=== PATIENT | female | born 1940 | race Caucasian/White ===

== ENCOUNTER 2020-09-11 15:30 | IRF | payer OTHER, SELFPAY ==
--- NOTE | ~2020-09-11 | XR_ITS ---
EXAMINATION: XR chest 2V DATE: 09/18/2020 10:19 INDICATION: Shortness of breath TECHNIQUE: AP and lateral views of the chest are obtained. COMPARISON: None available FINDINGS: There are minimal airspace opacities of the lower lobes. There is no pleural effusion or pn eumothorax. The cardiomediastinal silhouette is normal. There is moderate thoracic spondylosis. IMPRESSION: 1. Minimal airspace opacities of the lung bases, likely atelectasis. Reviewed, dictated and finalized at location A. CH MANAGER TRAINEE
[2020-09-11 15:30] VITALS: BP 128/65; PULSE 104; RESP 20; TEMP 35.9; O2SAT 97; BMI 29.0
--- NOTE | 2020-09-11 15:55 | ADMGEN ---
This patient, Carissa Ramos, was admitted to [facility] Room 223-01. Patient/family oriented to hospital policies and general routines including ID bracelet, bed and alarms, visiting hours, pain management, procedures, bathroom and other care routines, personal items, smoking policy, room service/diet, and visiting hours. Information on how to activate the Rapid Response Team has been discussed. Patient/Family are encouraged to report perceived risks to care and to ask questions if they do not understand what they are told or what they should do.
[2020-09-11] MEDS: CITALOPRAM HYDROBROMIDE 20 MG TABLET PO (17:20)
[2020-09-11] MEDS: ASPIRIN 325 MG ENTERIC TABLET PO (17:20)
[2020-09-11] MEDS: ACETAMINOPHEN 500 MG TABLET 1000 MG PO (17:20)
[2020-09-11] MEDS: SENNA/DOCUSATE SODIUM TABLET 2 TAB PO (20:18)
[2020-09-11 20:44] VITALS: BP 138/78; PULSE 99; RESP 18; TEMP 36.6; O2SAT 94
[2020-09-12] VITALS (7 sets, daily range): BP systolic 126–170; BP diastolic 66–90; PULSE 77–99; RESP 18–20; TEMP 36.4–36.7; O2SAT 94–96
[2020-09-12 05:52] LABS: Basophils Percent Auto 0.5 % (0.2-1.2); Eosinophils Absolute Auto 0.3 K/mm3 (0-0.3); Eosinophils Percent Auto 4.5 % (0-4.4); Hematocrit 29.6 % (37.0-47.0); Hemoglobin 9.8 g/dL (12.0-15.0); Immature Granulocyte Absolute 0.02 K/mm3 (0.00-0.031); Immature Granulocyte Percent A 0.3 % (0-0.5); Lymphocytes Absolute Auto 1.59 K/mm3 (0.9-3.2); Lymphocytes Percent Auto 24.8 % (18.3-44.2); Mean Corpuscular HGB Conc 33.1 g/dl (32-36); Mean Corpuscular Hemoglobin 31.8 pg (26-34); Mean Corpuscular Volume 96.1 fl (80-100); Monocytes Absolute Auto 0.8 K/mm3 (0.1-0.6); Neutrophils Absolute Auto 3.7 K/mm3 (1.3-6.7); Neutrophils Percent Auto 57.9 % (45.5-73.1); Platelet Count Result 334 k/mm3 (150-375); Red Blood Count 3.08 M/mm3 (4.2-5.4); Red Cell Distribution Width 14.7 % (11.5-14.5); White Blood Count 6.4 K/mm3 (4.5-10.0)
[2020-09-12] MEDS: LEVOTHYROXINE SODIUM 25 MCG TABLET PO (06:01)
[2020-09-12 06:06] LABS: Anion Gap 1 mmol/L (8-16); Blood Urea Nitrogen 39 mg/dL (7-17); Calcium 9.5 mg/dL (8.4-10.2); Carbon Dioxide 32 mmol/L (22-30); Chloride 106 mmol/L (98-107); Estimated CRCL calculation 35 ml/min; Estimated Glomerular Filt Rate 43; Glucose 113 mg/dL (65-105); Potassium 4.3 mmol/L (3.4-5.0); Sodium 139 mmol/L (137-145)
[2020-09-12] MEDS: ACETAMINOPHEN 500 MG TABLET 1000 MG PO ×4 (06:39→17:17)
[2020-09-12] MEDS: lisinopriL 20 MG TABLET PO (07:58)
[2020-09-12] MEDS: METOPROLOL SUCCINATE EXT REL 25 MG TABCR PO (07:58)
[2020-09-12] MEDS: SENNA/DOCUSATE SODIUM TABLET 2 TAB PO ×2 (07:58→20:36)
[2020-09-12] MEDS: hydroCHLOROthiazide 12.5 MG CAPSULE PO (07:58)
[2020-09-12] MEDS: PANTOPRAZOLE 40 MG TABLET PO (07:59)
[2020-09-12] MEDS: polyethylene glycoL 3350 17 GM POWD.PACK PO (07:59)
[2020-09-12] MEDS: ASPIRIN 325 MG ENTERIC TABLET PO ×2 (07:59→17:17)
[2020-09-12] MEDS: LIDOCAINE 5% PATCH 2 PATCH TOPICAL (08:00)
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
[2020-09-12] MEDS: CITALOPRAM HYDROBROMIDE 20 MG TABLET PO (17:17)
[2020-09-13] MEDS: ACETAMINOPHEN 500 MG TABLET 1000 MG PO ×4 (00:09→17:14)
[2020-09-13 05:53] VITALS: BP 127/65; PULSE 82; RESP 18; TEMP 36.9; O2SAT 95
[2020-09-13] MEDS: LEVOTHYROXINE SODIUM 25 MCG TABLET PO (06:23)
[2020-09-13 08:00] VITALS: PULSE 82; RESP 18; O2SAT 95
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
[2020-09-13] MEDS: hydroCHLOROthiazide 12.5 MG CAPSULE PO (09:20)
[2020-09-13] MEDS: ASPIRIN 325 MG ENTERIC TABLET PO ×2 (09:20→17:14)
[2020-09-13] MEDS: SENNA/DOCUSATE SODIUM TABLET 2 TAB PO ×2 (09:20→20:10)
[2020-09-13] MEDS: PANTOPRAZOLE 40 MG TABLET PO (09:20)
[2020-09-13 09:21] VITALS: PULSE 82
[2020-09-13] MEDS: polyethylene glycoL 3350 17 GM POWD.PACK PO (09:21)
[2020-09-13] MEDS: LIDOCAINE 5% PATCH 2 PATCH TOPICAL (09:21)
[2020-09-13] MEDS: METOPROLOL SUCCINATE EXT REL 25 MG TABCR PO (09:21)
[2020-09-13] MEDS: lisinopriL 20 MG TABLET PO (09:21)
[2020-09-13 13:00] VITALS: BMI 29.0
[2020-09-13] MEDS: CYCLOBENZAPRINE HCL 5 MG TABLET PO (13:05)
[2020-09-13 14:00] VITALS: BP 126/64; PULSE 84; RESP 20; TEMP 36.6; O2SAT 97
--- NOTE | 2020-09-13 15:48 | PCPTNOTE ---
Carissa Ramos was evaluated for a wheeled walker on 09/13/2020 by this physical therapist administrative assistant office manager. The wheeled walker will resolve patient's mobility limitations and will be used for ADL's within the home. The patient can safely use the wheeled walker. ?The wheeled walker will resolve the patient?s mobility deficits, including impaired balance, decreased strength and maintaining weight bearing restriction compliance.
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
[2020-09-13] MEDS: CITALOPRAM HYDROBROMIDE 20 MG TABLET PO (17:14)
[2020-09-14] MEDS: ACETAMINOPHEN 500 MG TABLET 1000 MG PO ×4 (00:08→17:09)
[2020-09-14 06:00] VITALS: BP 126/65; PULSE 75; RESP 20; TEMP 36.4; O2SAT 98
[2020-09-14] MEDS: LEVOTHYROXINE SODIUM 25 MCG TABLET PO (06:24)
[2020-09-14] MEDS: hydroCHLOROthiazide 12.5 MG CAPSULE PO (08:46)
[2020-09-14] MEDS: ASPIRIN 325 MG ENTERIC TABLET PO ×2 (08:46→17:09)
[2020-09-14] MEDS: lisinopriL 20 MG TABLET PO (08:47)
[2020-09-14] MEDS: LIDOCAINE 5% PATCH 2 PATCH TOPICAL (08:47)
[2020-09-14] MEDS: PANTOPRAZOLE 40 MG TABLET PO (08:47)
[2020-09-14 08:48] VITALS: PULSE 75
[2020-09-14] MEDS: SENNA/DOCUSATE SODIUM TABLET 2 TAB PO ×2 (08:48→20:29)
[2020-09-14] MEDS: METOPROLOL SUCCINATE EXT REL 25 MG TABCR PO (08:48)
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
[2020-09-14 14:00] VITALS: BP 102/56; PULSE 80; RESP 20; TEMP 36.4; O2SAT 95
[2020-09-14] MEDS: CITALOPRAM HYDROBROMIDE 20 MG TABLET PO (17:09)
[2020-09-14 20:00] VITALS: PULSE 88; RESP 18; O2SAT 97
[2020-09-14 20:12] VITALS: BP 147/68; PULSE 88; RESP 18; TEMP 36.1; O2SAT 97
[2020-09-15 05:41] VITALS: BP 119/63; PULSE 82; RESP 18; TEMP 36.4; O2SAT 96
[2020-09-15] MEDS: LEVOTHYROXINE SODIUM 25 MCG TABLET PO (06:23)
[2020-09-15] MEDS: ACETAMINOPHEN 500 MG TABLET 1000 MG PO ×4 (06:24→17:26)
[2020-09-15 08:30] VITALS: PULSE 86
[2020-09-15] MEDS: hydroCHLOROthiazide 12.5 MG CAPSULE PO (08:30)
[2020-09-15] MEDS: METOPROLOL SUCCINATE EXT REL 25 MG TABCR PO (08:30)
[2020-09-15] MEDS: PANTOPRAZOLE 40 MG TABLET PO (08:31)
[2020-09-15] MEDS: SENNA/DOCUSATE SODIUM TABLET 2 TAB PO ×2 (08:31→20:28)
[2020-09-15] MEDS: ASPIRIN 325 MG ENTERIC TABLET PO ×2 (08:31→17:26)
[2020-09-15] MEDS: LIDOCAINE 5% PATCH 1 PATCH TRANSDERM (08:32)
[2020-09-15] MEDS: lisinopriL 20 MG TABLET PO (08:32)
[2020-09-15 14:00] VITALS: BP 140/86; PULSE 73; RESP 20; TEMP 36.8; O2SAT 96
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
[2020-09-15] MEDS: CITALOPRAM HYDROBROMIDE 20 MG TABLET PO (17:26)
[2020-09-15 20:01] VITALS: BP 117/64; PULSE 59; RESP 20; TEMP 36.3; O2SAT 97
[2020-09-16] MEDS: ACETAMINOPHEN 500 MG TABLET 1000 MG PO ×4 (00:30→17:39)
[2020-09-16 04:57] VITALS: BP 136/74; PULSE 84; RESP 18; TEMP 36.4; O2SAT 95
[2020-09-16] MEDS: ASPIRIN 325 MG ENTERIC TABLET PO ×2 (08:48→17:41)
[2020-09-16] MEDS: SENNA/DOCUSATE SODIUM TABLET 2 TAB PO ×2 (08:48→20:49)
[2020-09-16] MEDS: LEVOTHYROXINE SODIUM 25 MCG TABLET PO (08:48)
[2020-09-16 08:49] VITALS: PULSE 84
[2020-09-16] MEDS: hydroCHLOROthiazide 12.5 MG CAPSULE PO (08:49)
[2020-09-16] MEDS: LIDOCAINE 5% PATCH 1 PATCH TRANSDERM (08:49)
[2020-09-16] MEDS: METOPROLOL SUCCINATE EXT REL 25 MG TABCR PO (08:49)
[2020-09-16] MEDS: lisinopriL 20 MG TABLET PO (08:49)
[2020-09-16] MEDS: PANTOPRAZOLE 40 MG TABLET PO (08:50)
[2020-09-16] MEDS: oxyCODONE HCL (*CRX) 5 MG TAB IR PO (11:43)
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
[2020-09-16 14:00] VITALS: BP 80/50; PULSE 78; RESP 20; TEMP 36.3; O2SAT 97
--- NOTE | 2020-09-16 14:20 | PCPTNOTE ---
The patient treatment was not able to be completed on 09/16/20 due to low blood pressure. Per RN, patient not feeling well. 14:00, Patient assisted back to bed. Patient states that she did not feel well. Will attempt later to complete PT minutes as appropriate. Will plan to continue treatment per plan of care. Delmi Minaya, FOLDER TAPER OPERATOR
[2020-09-16 15:29] VITALS: BP 98/52; PULSE 79
[2020-09-16] MEDS: CITALOPRAM HYDROBROMIDE 20 MG TABLET PO (17:41)
[2020-09-16 22:00] VITALS: BP 106/59; PULSE 80; RESP 20; TEMP 36.6; O2SAT 97
[2020-09-17] MEDS: ACETAMINOPHEN 500 MG TABLET 1000 MG PO ×4 (01:54→17:02)
[2020-09-17 06:00] VITALS: BP 143/76; PULSE 76; RESP 20; TEMP 36.4; O2SAT 96
[2020-09-17] MEDS: LEVOTHYROXINE SODIUM 25 MCG TABLET PO (06:13)
[2020-09-17] MEDS: hydroCHLOROthiazide 12.5 MG CAPSULE PO (08:52)
[2020-09-17] MEDS: PANTOPRAZOLE 40 MG TABLET PO (08:52)
[2020-09-17] MEDS: METOPROLOL SUCCINATE EXT REL 25 MG TABCR PO (08:52)
[2020-09-17] MEDS: SENNA/DOCUSATE SODIUM TABLET 2 TAB PO ×2 (08:53→20:26)
[2020-09-17] MEDS: ASPIRIN 325 MG ENTERIC TABLET PO ×2 (08:53→17:02)
[2020-09-17] MEDS: LIDOCAINE 5% PATCH 1 PATCH TRANSDERM (09:21)
--- NOTE | 2020-09-17 13:21 | PCDIET ---
Nutrition Follow-Up Complete: No nutrition diagnosis at this time. Goal: Patient to consume 75% of meals or greater. Goal in progress: patient has been consuming 100% of most meals. Pt current nutrition is a regular diet which is appropriate. Last recorded weight is 76.8 kg. Patient has no new documented weight since admission. Bowel Motility: +BM on 09/16/2020 Labs Reviewed: Hgb 9.8, Hct 29.6, BUN 39, Cr 1.2, Glu 113 Meds Noted: synthroid, toprol XL, protonix, miralax, hydrochlorothiazide, senna Additional Notes: Patient was scheduled for a follow up today but was leaving for therapy as I arrived. Talked to nurse aid. She said patient has a fluctuating appetite but has been eating 100% of her meals lately. Follow up in 7 days.
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
[2020-09-17 14:00] VITALS: BP 111/78; PULSE 79; RESP 20; TEMP 36.8; O2SAT 97
--- NOTE | 2020-09-17 14:03 | PCNSR ---
On 09/17/20, the student, Frances Ding, provided care and completed [facility] documentation on this patient. I have reviewed the student's documentation and agree with the findings.
[2020-09-17 20:20] VITALS: PULSE 79; RESP 20; O2SAT 97
[2020-09-17] MEDS: CITALOPRAM HYDROBROMIDE 20 MG TABLET PO (20:27)
[2020-09-17 22:00] VITALS: BP 117/54; PULSE 72; RESP 18; TEMP 36.6; O2SAT 94
[2020-09-18] MEDS: ACETAMINOPHEN 500 MG TABLET 1000 MG PO ×5 (01:10→23:48)
[2020-09-18 05:04] VITALS: BP 127/74; PULSE 76; RESP 18; TEMP 36.7; O2SAT 96
[2020-09-18] MEDS: LEVOTHYROXINE SODIUM 25 MCG TABLET PO (06:02)
[2020-09-18 08:00] VITALS: PULSE 77; RESP 18; O2SAT 94
--- NOTE | 2020-09-18 09:30 | PC.NURSE ---
This morning while eating breakfast Carissa called out and said that her orange juice had gone down the wrong way and she was worried that she had aspirated. Carissa was coughing productively, anterior upper lungs sounds were slightly course. Dr. Grace notified, chest xray ordered.
[2020-09-18 11:01] VITALS: PULSE 76
[2020-09-18] MEDS: SENNA/DOCUSATE SODIUM TABLET 2 TAB PO ×2 (11:01→21:11)
[2020-09-18] MEDS: LIDOCAINE 5% PATCH 1 PATCH TRANSDERM (11:01)
[2020-09-18] MEDS: hydroCHLOROthiazide 12.5 MG CAPSULE PO (11:01)
[2020-09-18] MEDS: METOPROLOL SUCCINATE EXT REL 25 MG TABCR PO (11:01)
[2020-09-18] MEDS: ASPIRIN 325 MG ENTERIC TABLET PO ×2 (11:02→18:13)
[2020-09-18] MEDS: polyethylene glycoL 3350 17 GM POWD.PACK PO (13:16)
[2020-09-18] MEDS: PANTOPRAZOLE 40 MG TABLET PO (13:16)
[2020-09-18 14:00] VITALS: BP 127/61; PULSE 77; RESP 18; TEMP 36.7; O2SAT 94
[2020-09-18] MEDS: CITALOPRAM HYDROBROMIDE 20 MG TABLET PO (18:13)
[2020-09-18 21:27] VITALS: BP 112/67; PULSE 76; RESP 18; TEMP 36.2; O2SAT 96
[2020-09-19 05:34] LABS: Basophils Percent Auto 0.5 % (0.2-1.2); Eosinophils Absolute Auto 0.3 K/mm3 (0-0.3); Eosinophils Percent Auto 4.7 % (0-4.4); Hematocrit 29.1 % (37.0-47.0); Hemoglobin 9.7 g/dL (12.0-15.0); Immature Granulocyte Absolute 0.02 K/mm3 (0.00-0.031); Immature Granulocyte Percent A 0.3 % (0-0.5); Lymphocytes Absolute Auto 1.57 K/mm3 (0.9-3.2); Lymphocytes Percent Auto 26.4 % (18.3-44.2); Mean Corpuscular HGB Conc 33.3 g/dl (32-36); Mean Corpuscular Hemoglobin 31.9 pg (26-34); Mean Corpuscular Volume 95.7 fl (80-100); Mean Platelet Volume 9.3 fl (7.4-10.4); Monocytes Absolute Auto 0.6 K/mm3 (0.1-0.6); Monocytes Percent Auto 10.1 % (2.6-8.5); Neutrophils Absolute Auto 3.4 K/mm3 (1.3-6.7); Platelet Count Result 357 k/mm3 (150-375); Red Blood Count 3.04 M/mm3 (4.2-5.4); Red Cell Distribution Width 15.2 % (11.5-14.5); White Blood Count 5.9 K/mm3 (4.5-10.0)
[2020-09-19] MEDS: ACETAMINOPHEN 500 MG TABLET 1000 MG PO ×4 (05:41→23:46)
[2020-09-19] MEDS: LEVOTHYROXINE SODIUM 25 MCG TABLET PO (05:41)
[2020-09-19 05:52] LABS: Anion Gap 3 mmol/L (8-16); Blood Urea Nitrogen 39 mg/dL (7-17); Calcium 9.4 mg/dL (8.4-10.2); Carbon Dioxide 30 mmol/L (22-30); Chloride 106 mmol/L (98-107); Estimated CRCL calculation 35 ml/min; Estimated Glomerular Filt Rate 43; Glucose 103 mg/dL (65-105); Potassium 4.5 mmol/L (3.4-5.0); Sodium 139 mmol/L (137-145)
[2020-09-19 05:59] VITALS: BP 157/75; PULSE 71; RESP 18; TEMP 36.5; O2SAT 93
[2020-09-19 08:00] VITALS: PULSE 85; RESP 20; O2SAT 96
[2020-09-19] MEDS: SENNA/DOCUSATE SODIUM TABLET 2 TAB PO ×2 (09:30→20:08)
[2020-09-19] MEDS: LIDOCAINE 5% PATCH 1 PATCH TRANSDERM (09:30)
[2020-09-19 09:32] VITALS: PULSE 71
[2020-09-19] MEDS: PANTOPRAZOLE 40 MG TABLET PO (09:32)
[2020-09-19] MEDS: hydroCHLOROthiazide 12.5 MG CAPSULE PO (09:32)
[2020-09-19] MEDS: METOPROLOL SUCCINATE EXT REL 25 MG TABCR PO (09:32)
[2020-09-19] MEDS: ASPIRIN 325 MG ENTERIC TABLET PO ×2 (09:33→17:53)
[2020-09-19] MEDS: polyethylene glycoL 3350 17 GM POWD.PACK PO (09:33)
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
[2020-09-19 14:00] VITALS: BP 121/56; PULSE 85; RESP 20; TEMP 36.6; O2SAT 96
[2020-09-19] MEDS: CITALOPRAM HYDROBROMIDE 20 MG TABLET PO (17:53)
[2020-09-19 20:00] VITALS: PULSE 77; RESP 18; O2SAT 96
[2020-09-19 20:34] VITALS: BP 133/70; PULSE 77; RESP 18; TEMP 36.7; O2SAT 96
[2020-09-20 05:16] VITALS: BP 148/78; PULSE 75; RESP 18; TEMP 36.5; O2SAT 95
[2020-09-20] MEDS: LEVOTHYROXINE SODIUM 25 MCG TABLET PO (05:28)
[2020-09-20] MEDS: ACETAMINOPHEN 500 MG TABLET 1000 MG PO ×2 (05:28→12:31)
[2020-09-20 08:00] VITALS: PULSE 75; RESP 18; O2SAT 95
[2020-09-20] MEDS: hydroCHLOROthiazide 12.5 MG CAPSULE PO (08:32)
[2020-09-20] MEDS: ASPIRIN 325 MG ENTERIC TABLET PO (08:32)
[2020-09-20 08:33] VITALS: PULSE 75
[2020-09-20] MEDS: SENNA/DOCUSATE SODIUM TABLET 2 TAB PO (08:33)
[2020-09-20] MEDS: LIDOCAINE 5% PATCH 1 PATCH TRANSDERM (08:33)
[2020-09-20] MEDS: METOPROLOL SUCCINATE EXT REL 25 MG TABCR PO (08:33)
[2020-09-20] MEDS: polyethylene glycoL 3350 17 GM POWD.PACK PO (08:33)
[2020-09-20] MEDS: PANTOPRAZOLE 40 MG TABLET PO (08:33)
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
== END 2020-09-20 14:10 | disposition home health service (06) | DRG 561 ==
PROVIDERS: Admitting Provider Psychiatry & Neurology Neurology; PCP Internal Medicine; Visit Provider Psychiatry & Neurology Neurology
DX: S82.842E Displaced bimalleolar fracture of left lower leg, subsequent encounter for open fracture type I or II with routine healing (principal); S22.21XD Fracture of manubrium, subsequent encounter for fracture with routine healing; S22.43XD Multiple fractures of ribs, bilateral, subsequent encounter for fracture with routine healing; R06.89 Other abnormalities of breathing; E03.9 Hypothyroidism, unspecified; I10 Essential (primary) hypertension; R42 Dizziness and giddiness; V89.2XXD Person injured in unspecified motor-vehicle accident, traffic, subsequent encounter; D64.9 Anemia, unspecified
CPT/HCPCS: 36415; 71046; 80048; 85025; 97110; 97116; 97161; 97165; 97530; 97535; 97542; A9270